=== PATIENT | male | born 1990 | race Caucasian/White ===

== ENCOUNTER 2016-05-13 11:11 | Emergency (ER) | payer SELFPAY ==
[2016-05-13 11:44] VITALS: BP 125/69
--- NOTE | 2016-05-13 11:54 | UC ---
Respiratory Complaint HPI - HPI Summary HPI Summary: cough , chest congestion x 2 days , no fever, no chills, + nasal congestion - History of Current Complaint Chief Complaint: UCRespiratory Stated Complaint: COUGH Time Seen by Provider: 05/13/16 11:31 Hx Obtained From: Patient Onset/Duration: Gradual Onset, Lasting Days - 2, Still Present Timing: Constant Severity Initially: Moderate Severity Currently: Moderate Character: Cough: Nonproductive Aggravating Factors: Allergens, Deep Breaths Associated Signs And Symptoms: Positive: Wheezing, URI, Sinus Discomfort. Negative: Dizziness - Allergies/Home Medications Allergies/Adverse Reactions: Allergies Allergy/AdvReac Type Severity Reaction Status Date / Time Doxycycline Allergy Severe fever , Verified 05/13/16 11:34 hives Minocycline Allergy Severe fever , Verified 05/13/16 11:34 hives Home Medications: Home Medications Acetaminophen TAB* [Tylenol TAB*] 1,000 mg PO Q6H PRN 05/13/16 [History Confirmed 05/13/16] PMH/Surg Hx/FS Hx/Imm Hx Respiratory History Of: Reports: Asthma - childhood asthma - Surgical History Surgical History: Yes Surgery Procedure, Year, and Place: Right wrist ganglion cyst removal surgery at age 14yrs - Family History Known Family History: Positive: Hypertension Negative: Diabetes - Social History Alcohol Use: None Substance Use Type: Marijuana Substance Use Comment - Amount & Last Used: 05/10/16 Smoking Status (MU): Heavy Every Day Tobacco Smoker Type: Cigarettes Amount Used/How Often: 1/2 PPD Review of Systems Constitutional: Negative Skin: Negative Eyes: Negative ENT: Negative Respiratory: Cough Cardiovascular: Negative All Other Systems Reviewed And Are Negative: Yes Physical Exam Triage Information Reviewed: Yes Appearance: Well-Appearing, No Pain Distress, Well-Nourished Vital Signs: Initial Vital Signs Temp 98.9 F 05/13/16 11:21 Pulse 84 05/13/16 11:21 Resp 18 05/13/16 11:21 BP 125/69 05/13/16 11:21 Pulse Ox 100 05/13/16 11:21 Vital Signs Reviewed: Yes Eye Exam: Normal Eyes: Positive: Conjunctiva Clear ENT: Positive: Normal ENT inspection, Hearing grossly normal, Pharynx normal Neck exam: Normal Neck: Positive: Supple, Nontender, No Lymphadenopathy Respiratory: Positive: Chest non-tender, Lungs clear, Normal breath sounds Cardiovascular: Positive: RRR, No Murmur, Pulses Normal Skin Exam: Normal UC Diagnostic Evaluation - Laboratory O2 Sat by Pulse Oximetry: 100 Respiratory Course/Dx - Differential Dx/Diagnosis Provider Diagnoses: URI Discharge - Discharge Plan Condition: Stable Disposition: HOME Prescriptions: Albuterol HFA INHALER* [Ventolin HFA Inhaler*] 1 puff INH Q4H PRN #1 mdi PRN Reason: Wheezing Patient Education Materials: Upper Respiratory Infection (ED) Forms: *Work Release Referrals: MELISSA Peters [Primary Care Provider] - If Needed
== END 2016-05-13 11:57 | disposition home or self-care (01) ==
LOC: UCCORT 11:11
DX: J06.9 Acute upper respiratory infection, unspecified (principal); Z88.1 Allergy status to other antibiotic agents; F12.90 Cannabis use, unspecified, uncomplicated; F17.210 Nicotine dependence, cigarettes, uncomplicated
CPT/HCPCS: 99212; G0463

== ENCOUNTER 2016-11-05 14:07 | Emergency (ER) | payer OTHER ==
[2016-11-05 14:33] VITALS: BP 121/69
--- NOTE | 2016-11-05 15:23 | UC ---
Neck Pain HPI - HPI Summary HPI Summary: 26 y/o male presents to the urgent care c/o RT side neck pain for the past 4 days. 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 Pt states pain is like a spasmodic and is 8/10 an radiates to his back. He took Ibuprofen 600mg PO this morning which helped. Pt denies any COWAN, numbness or tingling over the upper arms, fever, SOB, chest pain, N/V/D. Pt states he is in a hurry because he needs to take his girlfriend to work. Declines any Images. Pt request a note for work. Pt has not other complains. - History of Current Complaint Chief Complaint: UCBackPain Stated Complaint: NECK PAIN Time Seen by Provider: 11/05/16 15:13 Hx Obtained From: Patient Onset/Duration Of Injury/Symptoms: Days - 4 days ago Mechanism Of Injury: No Known Trauma Timing: Constant Onset/Duration: Gradual Onset, Lasting Days, Still Present Severity: Moderate Pain Intensity: 8 Pain Scale Used: 0-10 Numeric Location: Discrete At: - RT side of neck Character: Spasmotic Aggravating Factors: Movement Alleviating Factors: OTC Meds Associated Signs & Symptoms: Positive: Headache - mild. Negative: Swelling, Redness, Fever, Nuchal Rigity, Weakness, Paresthesia - Risk Factors Meningitis Risk Factors: Negative - Allergies/Home Medications Allergies/Adverse Reactions: Allergies Allergy/AdvReac Type Severity Reaction Status Date / Time Doxycycline Allergy Severe fever , Verified 11/05/16 14:24 hives Minocycline Allergy Severe fever , Verified 11/05/16 14:24 hives PMH/Surg Hx/FS Hx/Imm Hx Previously Healthy: Yes Respiratory History: Asthma - Surgical History Surgical History: Yes Surgery Procedure, Year, and Place: Right wrist ganglion cyst removal surgery - Family History Known Family History: Positive: Hypertension Negative: Diabetes - Social History Occupation: Employed Full-time Lives: With Family Alcohol Use: None Substance Use Type: None Substance Use Comment - Amount & Last Used: 05/10/16 Smoking Status (MU): Heavy Every Day Tobacco Smoker Type: Cigarettes Amount Used/How Often: 1/2 PPD Household Exposure Type: Cigarettes Review Of Systems Constitutional: Positive: Negative Skin: Positive: Negative Eyes: Positive: Negative ENT: Positive: Negative Respiratory: Positive: Negative Cardiovascular: Positive: Negative Gastrointestinal: Positive: Negative Genitourinary: Positive: Negative Musculoskeletal: Positive: Other: - RT side neck pain and spasm Neurological: Positive: Headache - mild Psychological: Positive: Negative All Other Systems Reviewed And Are Negative: Yes Physical Exam Triage Information Reviewed: Yes Appearance: Well-Appearing, No Pain Distress, Well-Nourished, Thin Vital Signs: Initial Vital Signs Temp 98.7 F 11/05/16 14:25 Pulse 79 11/05/16 14:25 Resp 18 11/05/16 14:25 BP 121/69 11/05/16 14:25 Pulse Ox 100 11/05/16 14:25 Vital Signs Reviewed: Yes Eye Exam: Normal Eyes: Positive: Conjunctiva Clear - PERRLA, EOMI ENT Exam: Normal ENT: Positive: Normal ENT inspection, Hearing grossly normal, Pharynx normal, TMs normal Dental Exam: Normal Neck: Positive: Supple, No Lymphadenopathy, Other: - Supple without meningismus or adenopathy. Carotids are equal. Trachea midline. No bruits or JVD. point tenderness on the RT side of neck over trapezius muscle, limited ROM of neck RT> LF side due to pain specially lateral bending.. Respiratory Exam: Normal Respiratory: Positive: Chest non-tender, Lungs clear, Normal breath sounds Cardiovascular Exam: Normal Cardiovascular: Positive: RRR, No Murmur, Pulses Normal, Brisk Capillary Refill Abdominal Exam: Normal Abdomen Description: Positive: Nontender, No Organomegaly, Soft. Negative: CVA Tenderness (R), CVA Tenderness (L) Bowel Sounds: Positive: Present Musculoskeletal Exam: Normal Musculoskeletal: Positive: Strength Intact, ROM Intact, No Edema Neurological Exam: Normal Psychological Exam: Normal Skin Exam: Normal Neck Pain Course/Dx - Course Course Of Treatment: 26 y/o male presents to the urgent care c/o RT side neck pain for the past 4 days. 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 Pt states pain is like a spasmodic and is 8/10 an radiates to his back. He took Ibuprofen 600mg PO this morning which helped. Pt denies any COWAN, numbness or tingling over the upper arms, fever, SOB, chest pain , N/V/D. Pt states he is in a hurry because he needs to take his girlfriend to work. Declines any Images. Pt has not other complains.HX obtained. Pt with neck spasm . Rx Flexeril Po and Naproxen Po to allviate symptoms. Advised if not improvement of symptoms to f/u with his PCP or return to the urgent clinic. Pt understood and agreed and left clinic ambulating. - Differential Dx/Diagnosis Differential Dx/HQI/PQRI: Arthritis, Dislocation, Sprain, Strain, Torticollis Provider Diagnoses: 1- neck pain with neck spasm Discharge - Discharge Plan Condition: Stable Disposition: HOME Prescriptions: Cyclobenzaprine TAB* [Flexeril 10 MG TAB*] 10 mg PO TID PRN #15 tab PRN Reason: Spasms - Neck Naproxen TAB* [Naprosyn 250 mg TAB*] 500 mg PO Q8H PRN #21 tab PRN Reason: Pain Patient Education Materials: Muscle Spasm (ED) Forms: *Work Release Referrals: MELISSA Peters [Primary Care Provider] - 3 Days Additional Instructions: 1-Please take medications as directed to alleviate pain and spasm. the Flexeril PO can make you drowsy, please avoid driving. 2-Please apply warm compresses around the spasm 3- If symptoms do not improve or worsen please f/u with your PCP or return to the [facility] care for further treatment
== END 2016-11-05 15:36 | disposition home or self-care (01) ==
LOC: UCCORT 14:07
DX: M54.2 Cervicalgia (principal); M62.830 Muscle spasm of back; R51 Headache; J45.909 Unspecified asthma, uncomplicated; Z88.1 Allergy status to other antibiotic agents; F17.210 Nicotine dependence, cigarettes, uncomplicated
CPT/HCPCS: 99212; G0463

== ENCOUNTER 2017-05-16 12:08 | Emergency (ER) | payer SELFPAY ==
[2017-05-16 12:32] VITALS: BP 137/93
--- NOTE | 2017-05-16 13:50 | UC ---
UC General HPI - HPI Summary HPI Summary: patient her reporting no opiate use for about 3 weeks, patient reports for the past 4 days he has had issues with insomnia, due to stresses related to the past few weeks when he was using opiates including both him and his girl friend being arrested, and the reality of sobriety - History of Current Complaint Chief Complaint: UCGeneralIllness Stated Complaint: INSOMNIA Time Seen by Provider: 05/16/17 12:28 Hx Obtained From: Patient Onset/Duration: Gradual Onset, Lasting Days - 4 Timing: Constant Onset Severity: Moderate Current Severity: Moderate Pain Intensity: 4 - Allergy/Home Medications Allergies/Adverse Reactions: Allergies Allergy/AdvReac Type Severity Reaction Status Date / Time doxycycline Allergy Hives Verified 05/16/17 12:23 minocycline Allergy Hives Verified 05/16/17 12:23 PMH/Surg Hx/FS Hx/Imm Hx Previously Healthy: No Psychological History: Other Other Psychological History: opiate abuse disorder in early sobriety - Surgical History Surgical History: Yes Surgery Procedure, Year, and Place: Right wrist ganglion cyst removal surgery - Family History Known Family History: Positive: Hypertension Negative: Diabetes - Social History Occupation: Unemployed Lives: With Family Alcohol Use: None Substance Use Type: Heroin, Other Substance Use Comment - Amount & Last Used: 05/01/17 Smoking Status (MU): Heavy Every Day Tobacco Smoker Type: Cigarettes Amount Used/How Often: 1/2 PPD Household Exposure Type: Cigarettes Review of Systems Constitutional: Negative Skin: Negative Eyes: Negative ENT: Negative Respiratory: Negative Cardiovascular: Negative Gastrointestinal: Negative Genitourinary: Negative Motor: Negative Neurovascular: Negative Musculoskeletal: Negative Neurological: Negative Psychological: Other - insomnia- Is Patient Immunocompromised?: No All Other Systems Reviewed And Are Negative: Yes Physical Exam Triage Information Reviewed: Yes Appearance: Well-Appearing, No Pain Distress, Well-Nourished Vital Signs: Initial Vital Signs Temp 99.4 F 05/16/17 12:24 Pulse 98 05/16/17 12:24 Resp 20 05/16/17 12:24 BP 137/93 05/16/17 12:24 Pulse Ox 100 05/16/17 12:24 Vital Signs Reviewed: Yes Eye Exam: Normal Eyes: Positive: Conjunctiva Clear ENT Exam: Normal ENT: Positive: Normal ENT inspection, Hearing grossly normal. Negative: Nasal congestion, Tonsillar swelling, Tonsillar exudate, Trismus, Muffled voice, Hoarse voice, Sinus tenderness Dental Exam: Normal Neck exam: Normal Neck: Positive: Supple, Nontender Respiratory Exam: Normal Respiratory: Positive: No respiratory distress, No accessory muscle use Cardiovascular Exam: Normal Cardiovascular: Positive: Pulses Normal, Brisk Capillary Refill Musculoskeletal Exam: Normal Musculoskeletal: Positive: Strength Intact, ROM Intact, No Edema Neurological Exam: Normal Neurological: Positive: Alert, Muscle Tone Normal Psychological Exam: Normal Skin Exam: Normal Course/Dx - Course Course Of Treatment: extensive edcation regarding safety, multiple referrals made for follow up care and treatment options AA/NA encouraged, hospital remains an open option should sx worsen or fail to improve - Differential Dx - Multi-Symptom Provider Diagnoses: insomnia, phase 3 opiate withdraw Discharge - Discharge Plan Condition: Stable Disposition: HOME Prescriptions: cloNIDine HCl [Catapres 0.1 MG TAB] 0.1 mg PO BID PRN #10 tablet PRN Reason: Agitation/Anxiety Naloxone Nasal [place]* [Narcan Nasal [place]] 4 mg NA SEE INSTRUCTIONS #2 spr traZODone TAB* [Desyrel TAB*] 100 mg PO BEDTIME #5 tab Patient Education Materials: Narcotic Abuse (ED), Insomnia (ED) Referrals: MELISSA Peters [Primary Care Provider] - 1 Day
== END 2017-05-16 13:40 | disposition home or self-care (01) ==
LOC: UCCORT 12:08
DX: G47.00 Insomnia, unspecified (principal); F11.23 Opioid dependence with withdrawal; Z88.1 Allergy status to other antibiotic agents; F17.210 Nicotine dependence, cigarettes, uncomplicated
CPT/HCPCS: 99212; G0463

== ENCOUNTER 2017-12-02 11:35 | Emergency (ER) | payer OTHER ==
--- NOTE | 2017-12-02 11:41 | ED ---
Head Injury - HPI Summary HPI Summary: This patient is a 27 year old M CLAUDINE from [facility] drug treatment [facility] to ED with a chief complaint of head injury since about 1050 today. The patient leaned back against a chair, the chair slipped and the patient hit his head back against the wall. He then fell to the ground. He tried to stand up but felt dizzy so he went to sit back down again. The patient rates the pain 4/10 in severity. Symptoms aggravated by nothing. Symptoms alleviated by spontaneous resolution. Patient reports COWAN (currently resolved), dizziness, and nausea ( currently resolved). Patient denies LOC. Current vitals include 77 BPM, 100 O2 sat, and BP 146/85. - History Of Current Complaint Stated Complaint: FALL Time Seen by Provider: 12/02/17 11:37 Hx Obtained From: Patient Mechanism Of Injury: Blunt Trauma - hit head back against the wall, fall from a chair leaning back Onset/Duration: Started Hours Ago - about 1050 today, Traumatic, Resolved Onset of Pain: Immediate Severity Currently: None Severity Initially: Mild Pain Intensity: 4 Pain Scale Used: 0-10 Numeric Location of Head Injury: Occipital Location: Discrete At: - post occiput Character: Dull Aggravating Factor(s): Other: - nothing Alleviating Factor(s): Other: - spontaneous resolution Associated Signs And Symptoms: Headache, Other: - Patient reports COWAN (currently resolved), dizziness, and nausea (currently resolved). Patient denies LOC. - Allergies/Home Medications Allergies/Adverse Reactions: Allergies Allergy/AdvReac Type Severity Reaction Status Date / Time doxycycline Allergy Hives Verified 05/16/17 12:23 minocycline Allergy Hives Verified 05/16/17 12:23 PMH/Surg Hx/FS Hx/Imm Hx Previously Healthy: No - former heroin user Endocrine/Hematology History: Denies: Hx Diabetes Cardiovascular History: Denies: Hx Coronary Artery Disease, Hx Hypertension Respiratory History: Reports: Hx Asthma - childhood asthma Psychiatric History: Reports: Hx Substance Abuse - heroin - Surgical History Surgery Procedure, Year, and Place: Right wrist ganglion cyst removal surgery Infectious Disease History: No Infectious Disease History: Denies: Hx Clostridium Difficile, Hx Hepatitis, Hx Human Immunodeficiency Virus (HIV), Hx of Known/Suspected MRSA, Hx Shingles, Hx Tuberculosis, Hx Known/ Suspected VRE, Hx Known/Suspected VRSA, History Other Infectious Disease - Family History Known Family History: Positive: Hypertension, Other Negative: Diabetes Family History: CA, depression, anxiety - Social History Lives: Intermediate - currently in [facility] for heroin rehab 11/2017 Alcohol Use: None Substance Use Type: Reports: Heroin, Other Substance Use Comment - Amount & Last Used: 05/01/17 Smoking Status (MU): Heavy Every Day Tobacco Smoker Type: Cigarettes Amount Used/How Often: /2 PPD Review of Systems Constitutional: Negative Eyes: Negative Cardiovascular: Negative Positive: Nausea - now resolved Positive: Other - head injury Skin: Negative Neurological: Other - dizziness; denies LOC Positive: Headache - currently resolved Psychological: Normal All Other Systems Reviewed And Are Negative: Yes Physical Exam - Summary Physical Exam Summary: Appearance: Well-appearing, moderate pain distress, well-nourished Skin: Warm, color reflects adequate perfusion, dry Head: Normal Head/Face inspection, no hematoma, bruising or scalp tenderness at site of impact after fall on post occiput Eyes: Conjunctiva clear, PERRL, EOMI, no nystagmus ENT: Normal inspection Neck: Supple, no nodes, no JVD Respiratory: Lungs clear, normal breath sounds, no respiratory distress Cardio: RRR, No murmur, pulses normal, brisk capillary refill Abdomen: Soft, nontender Bowel sounds: Present Musculoskeletal: Strength Intact/ROM intact, no calf tenderness, no edema. Psychological: Normal Neuro: A&O x3, CN II-XII intact, motor function 5/5, sensation intact, cerebellar normal GCS: 15 Triage Information Reviewed: Yes Vital Signs On Initial Exam: Initial Vitals Temp Pulse Resp BP Pulse Ox 98.4 F 77 16 146/85 100 12/02/17 11:38 12/02/17 11:38 12/02/17 11:38 12/02/17 11:38 12/02/17 11:38 Vital Signs Reviewed: Yes Diagnostics - Laboratory Lab Statement: Any lab studies that have been ordered have been reviewed, and results considered in the medical decision making process. - CT Brain CT CT Interpretation Completed By: Radiologist - No intracranial mass or hemorrhage is noted. ED physician has reviewed this radiology report. Re-Evaluation - Re-Evaluation First Eval Re-Evaluation Time: 13:00 Change: Improved Comment: no headache, feels well. CT results discussed. Pt agrees with discharge. Head Injury Course/Dx Assessment/Plan: This patient is a 27 year old M CLAUDINE from [facility] drug [facility] program to ED with a chief complaint of head injury since about [address] reveals no intracranial mass or hemorrhage is noted. Pt's urine tox screen is negative. The patient will be discharged with dx of traumatic head injury. Patient understands and agrees with this plan. - Diagnoses Differential Diagnosis/HQI/PQRI: Concussion Without LOC, Hematoma, Intracranial Bleed, Skull Fracture Provider Diagnoses: Traumatic injury of head Discharge - Sign-Out/Discharge Documenting (check all that apply): Patient Departure - Discharge Plan Condition: Stable Disposition: HOME Patient Education Materials: Head Injury (ED) Referrals: MELISSA Peters [Medical Doctor] - Additional Instructions: Your head CT did not show any abnormalities. Return to the ER if you have any new or worsening symptoms. - Billing Disposition and Condition Condition: STABLE Disposition: Home - Attestation Statements Document Initiated by Scribe: Yes Documenting Scribe: Porter Blunt Provider For Whom David is Documenting (Include Credential): Sandra Slater MD Scribe Attestation: Porter Hill, scribed for Sandra Slater MD on 12/07/17 at 2214. Scribe Documentation Reviewed: Yes Provider Attestation: The documentation as recorded by the Porter de la o accurately reflects the service I personally performed and the decisions made by me, Sandra Slater MD
[2017-12-02 12:57] LABS: Urine Appearance Clear; Urine Blood Negative (Negative); Urine Color Straw; Urine Ketones Negative (Negative); Urine Protein Negative (Negative); Urine Specific Gravity 1.004 (1.010-1.030); Urine Urobilinogen Negative (Negative)
--- NOTE | 2017-12-02 12:59 | RAD ---
Indication: Head injury, dizziness. CT of the brain performed without IV contrast. Ventricular structures are midline. No midline shift is noted. The extraction spaces are unremarkable there is no evidence of intracranial mass or hemorrhage. No other high or low density lesions are identified. Mastoid air cells and paranasal sinuses are otherwise unremarkable. IMPRESSION: No intracranial mass or hemorrhage is noted.
[2017-12-02] MEDS ORDERED: Acetaminophen TAB* 325 MG PO ONE (13:12)
[2017-12-02 13:31] VITALS: BP 138/78
== END 2017-12-02 13:26 | disposition home or self-care (01) ==
LOC: ED 11:35
DX: S09.90XA Unspecified injury of head, initial encounter (principal); W22.01XA Walked into wall, initial encounter; Y92.9 Unspecified place or not applicable; R42 Dizziness and giddiness; F17.210 Nicotine dependence, cigarettes, uncomplicated
CPT/HCPCS: 36415; 70450; 80307; 81003; 99282; A9270-GY

== ENCOUNTER 2019-04-12 16:54 | Emergency (ER) | payer OTHER ==
[2019-04-12 17:22] VITALS: BP 127/78
--- NOTE | 2019-04-12 18:25 | UC ---
Abdominal Pain Male HPI - HPI Summary HPI Summary: 28 yo male with 5 day history of n/v markedly improved today 1 episode of vomiting past 24 hours no diarrhea no cp or sob no uti symptoms tolerating liquids well drinks 5 caffienated beverages/day no blood in vomit no COWAN no myalgias - History of Current Complaint Chief Complaint: UCGI Stated Complaint: VOMITING/STOMACH PAIN Time Seen by Provider: 04/12/19 18:16 Hx Obtained From: Patient Onset/Duration: Gradual Onset Timing: Constant Severity Initially: Mild Severity Currently: None Pain Intensity: 0 Pain Scale Used: 0-10 Numeric Location: Diffuse Character: Cramping Aggravating Factor(s): Food Alleviating Factor(s): Spontaneous Resolution Associated Signs And Symptoms: Positive: Constipation, Nausea, Vomiting. Negative: Diaphoresis, Fever, Cough, Chest Pain, Dizzy, Back Pain, Blood in Stool, Urinary Symptoms, Decreased Appetite, Diarrhea, Penile Discharge - Allergies/Home Medications Allergies/Adverse Reactions: Allergies Allergy/AdvReac Type Severity Reaction Status Date / Time doxycycline Allergy Hives Verified 04/12/19 17:18 minocycline Allergy Hives Verified 04/12/19 17:18 PMH/Surg Hx/FS Hx/Imm Hx Previously Healthy: Yes - Surgical History Surgical History: Yes Surgery Procedure, Year, and Place: Right wrist ganglion cyst removal surgery - Family History Known Family History: Positive: Hypertension, Non-Contributory Negative: Diabetes Family History: CA, depression, anxiety - Social History Alcohol Use: None Substance Use Type: None Substance Use Comment - Amount & Last Used: 05/01/17 Smoking Status (MU): Heavy Every Day Tobacco Smoker Type: Cigarettes Amount Used/How Often: 1/2 PPD Household Exposure Type: Cigarettes Review of Systems All Other Systems Reviewed And Are Negative: Yes Constitutional: Positive: Negative Skin: Positive: Negative Eyes: Positive: Negative ENT: Positive: Negative Respiratory: Positive: Negative Cardiovascular: Positive: Negative Gastrointestinal: Positive: Abdominal Pain - resolved, Vomiting, Nausea Motor: Positive: Negative Neurovascular: Positive: Negative Musculoskeletal: Positive: Negative Neurological: Positive: Negative Psychological: Positive: Negative Physical Exam Triage Information Reviewed: Yes Appearance: Well-Appearing, No Pain Distress, Well-Nourished Vital Signs: Initial Vital Signs Temp 98.5 F 04/12/19 17:18 Pulse 79 04/12/19 17:18 Resp 16 04/12/19 17:18 BP 127/78 04/12/19 17:18 Pulse Ox 100 04/12/19 17:18 Vital Signs Reviewed: Yes Eyes: Positive: Conjunctiva Clear ENT: Positive: Hearing grossly normal. Negative: Nasal congestion, Nasal drainage, Tonsillar swelling, Tonsillar exudate, Muffled voice, Hoarse voice Neck: Positive: Supple, Nontender, No Lymphadenopathy Respiratory: Positive: Lungs clear, Normal breath sounds, No respiratory distress, No accessory muscle use Cardiovascular: Positive: RRR, No Murmur Abdomen Description: Positive: No Organomegaly, Soft. Negative: Nontender - LLQ tenderness (mild), CVA Tenderness (R), CVA Tenderness (L) Bowel Sounds: Positive: Present Musculoskeletal: Positive: ROM Intact, No Edema Neurological: Positive: Alert Psychological Exam: Normal Skin Exam: Normal Abd Pain Male Course/Dx - Differential Dx/Clinical Impression Provider Diagnosis: Gastritis Discharge ED - Sign-Out/Discharge Documenting (check all that apply): Patient Departure All imaging exams completed and their final reports reviewed: No Studies - Discharge Plan Condition: Stable Disposition: HOME Prescriptions: Ondansetron TAB* [Zofran Tab*] 4 mg PO Q6H PRN #8 tab PRN Reason: Nausea Patient Education Materials: Acute Abdominal Pain (ED) Referrals: Dwight Dove DO [Primary Care Provider] - 2 Days (if not better) - Billing Disposition and Condition Condition: STABLE Disposition: Home
== END 2019-04-12 18:33 | disposition home or self-care (01) ==
LOC: UCCORT 16:54
DX: K29.70 Gastritis, unspecified, without bleeding (principal); Z88.1 Allergy status to other antibiotic agents; F17.210 Nicotine dependence, cigarettes, uncomplicated
CPT/HCPCS: 99212; G0463

== ENCOUNTER 2019-04-19 13:57 | Emergency (ER) | payer OTHER ==
--- NOTE | 2019-04-19 17:25 | ED ---
Abdominal Pain/Male - HPI Summary HPI Summary: Patient complains of persistent progressive abdominal pain, nausea or vomiting 2 weeks. Abdominal pain started on left side, now bilateral, and radiating to groin. Seen at urgent care 04/12, prescribed Zofran. Patient states Zofran controls nausea for the most part. Patient has history of IV heroin abuse, states he had to go get some street heroin for abdominal pain because it was so bad. Denies fever, cough, sore throat, CP, SOB, diarrhea, change in urine, venous discharge, testicular swelling or redness. Medical history is none. Abdominal surgical history is none. - History of Current Complaint Chief Complaint: EDAbdPain Stated Complaint: ABDOMINAL PAIN PER PT Time Seen by Provider: 04/19/19 17:22 Hx Obtained From: Patient Onset/Duration: Gradual Onset, Lasting Weeks Timing: Constant Severity Currently: Severe Pain Intensity: 10 Pain Scale Used: 0-10 Numeric Location: Discrete At: RLQ, Discrete At: LUQ, Discrete At: LLQ Radiates: No Character: Sharp, Cramping Aggravating Factor(s): Food, Movement Alleviating Factor(s): Nothing Associated Signs And Symptoms: Positive: Nausea, Vomiting - Allergies/Home Medications Allergies/Adverse Reactions: Allergies Allergy/AdvReac Type Severity Reaction Status Date / Time doxycycline Allergy Hives Verified 04/19/19 17:24 minocycline Allergy Hives Verified 04/19/19 17:24 PMH/Surg Hx/FS Hx/Imm Hx Endocrine/Hematology History: Denies: Hx Diabetes Cardiovascular History: Denies: Hx Coronary Artery Disease, Hx Hypertension Respiratory History: Reports: Hx Asthma - childhood asthma History: Denies: Hx Dialysis Sensory History: Denies: Hx Eye Prosthesis Opthamlomology History: Denies: Hx Legally Blind EENT History: Denies: Hx Deafness Neurological History: Denies: Hx Dementia Psychiatric History: Reports: Hx Substance Abuse - heroin - Surgical History Surgery Procedure, Year, and Place: Right wrist ganglion cyst removal surgery - Immunization History Immunizations Up to Date: Yes Infectious Disease History: No Infectious Disease History: Denies: Hx Clostridium Difficile, Hx Hepatitis, Hx Human Immunodeficiency Virus (HIV), Hx of Known/Suspected MRSA, Hx Shingles, Hx Tuberculosis, Hx Known/ Suspected VRE, Hx Known/Suspected VRSA, History Other Infectious Disease, Traveled Outside the [place] in Last 30 Days - Family History Known Family History: Positive: Hypertension, Other, Non-Contributory Negative: Diabetes Family History: [place], depression, anxiety - Social History Alcohol Use: None Substance Use Type: Reports: Heroin Substance Use Comment - Amount & Last Used: 05/01/17 Smoking Status (MU): Heavy Every Day Tobacco Smoker Type: Cigarettes Amount Used/How Often: 1/2 PPD Review of Systems Constitutional: Negative Eyes: Negative ENT: Negative Cardiovascular: Negative Respiratory: Negative Positive: Abdominal Pain, Vomiting, Nausea Genitourinary: Negative Musculoskeletal: Negative Skin: Negative Neurological: Negative Psychological: Normal All Other Systems Reviewed And Are Negative: Yes Physical Exam - Summary Physical Exam Summary: Patient tender to palpation in epigastrium, left upper quadrant, left lower quadrant, right lower quadrant. Exam of genitals normal. Triage Information Reviewed: Yes Vital Signs On Initial Exam: Initial Vitals Temp Pulse Resp BP Pulse Ox 99.5 F 87 18 134/81 99 04/19/19 14:04 04/19/19 14:04 04/19/19 14:04 04/19/19 14:04 04/19/19 14:04 Vital Signs Reviewed: Yes Appearance: Positive: Well-Appearing Skin: Positive: Warm Head/Face: Positive: Normal Head/Face Inspection Neck: Positive: Supple Respiratory/Lung Sounds: Positive: Clear to Auscultation Cardiovascular: Positive: Normal Abdomen Description: Positive: Other: Male Genital Exam: Positive: Normal Genitalia Musculoskeletal: Positive: Normal Neurological: Positive: Normal Psychiatric: Positive: Normal AVPU Assessment: Alert - [place] Coma Scale Best Eye Response: 4 - Spontaneous Best Motor Response: 6 - Obeys Commands Best Verbal Response: 5 - Oriented Coma Scale Total: 15 Procedures - Sedation Patient Received Moderate/Deep Sedation with Procedure: No Diagnostics - Vital Signs Vital Signs Temp Pulse Resp BP Pulse Ox 04/19/19 16:00 99 F 89 18 134/83 100 04/19/19 14:04 99.5 F 87 18 134/81 99 - Laboratory Result Diagrams: 04/19/19 18:00 04/19/19 18:00 Lab Statement: Any lab studies that have been ordered have been reviewed, and results considered in the medical decision making process. Abdominal Pain Male Course/Dx - Course Course Of Treatment: Patient complains of persistent progressive abdominal pain , nausea or vomiting 2 weeks. Abdominal pain started on left side, now bilateral, and radiating to groin. Seen at urgent care 04/12, prescribed Zofran. Patient states Zofran controls nausea for the most part. Patient has history of IV heroin abuse, states he had to go get some street heroin for abdominal pain because it was so bad. Denies fever, cough, sore throat, CP, SOB , diarrhea, change in urine, venous discharge, testicular swelling or redness. Medical history is none. Abdominal surgical history is none. Vital signs within normal limits. Labs unremarkable. CT abdomen and pelvis unremarkable. Pain and nausea vomiting controlled with morphine and Zofran IV. - Diagnoses Provider Diagnoses: Abdominal pain, Nausea & vomiting Discharge ED - Sign-Out/Discharge Documenting (check all that apply): Patient Departure - Discharge Plan Condition: Stable Disposition: HOME Prescriptions: Dicyclomine CAP* [Bentyl CAP*] 20 mg PO TID PRN 10 Days #60 cap PRN Reason: Pain Ondansetron ODT TAB* [Zofran 4 MG Odt TAB*] 4 mg PO Q8H PRN 4 Days #24 tab.odt PRN Reason: Nausea Patient Education Materials: Acute Nausea and Vomiting (ED), Acute Abdominal Pain (ED) Forms: *Gen. Provider Communication Referrals: Dwight Dove DO [Primary Care Provider] - Additional Instructions: Alternate ibuprofen 600 mg with Tylenol 650 mg for pain. Take Zofran as directed for nausea. Take Bentyl as directed for stomach pain. If symptoms persist more than 1 week follow-up with GI Dr Gustafson. Return to the ED for any new or worsening symptoms. - Billing Disposition and Condition Condition: STABLE Disposition: Home - Attestation Statements Provider Attestation: I was available for consult. This patient was seen by the [facility]. The patient was not presented to, seen by, or examined by me. Salinas Martinez MD
[2019-04-19] MEDS ORDERED: Ondansetron INJ* 2 MG/ML VIAL IV ONE (17:31)
[2019-04-19] MEDS ORDERED: Morphine 4 MG/ML VIAL (1 ml) 4 MG/ML VIAL IV ONE (17:31)
[2019-04-19] MEDS ORDERED: NS 0.9% 1000 ML** 1,000 ML IV ONE (17:31)
[2019-04-19 18:13] LABS: ABS Basophils 0.1 10^3/ul (0-0.2); ABS Eosinophils 0.1 10^3/ul (0-0.6); ABS Monocytes 0.7 10^3/ul (0-0.8); ABS Neutrophils 6.8 10^3/ul (1.5-7.7); Eosinophil % 1.5 %; Hematocrit 44 % (42-52); Hemoglobin 14.9 g/dL (14.0-18.0); Lymphocyte % 20.9 %; Mean Corpuscular HGB Conc 34 g/dL (31-36); Mean Corpuscular Hemoglobin 31 pg (27-31); Mean Corpuscular Volume 91 fL (80-94); Mean Platelet Volume 9.1 fL (7.4-10.4); Platelet Count 273 10^3/uL (150-450); Red Blood Count 4.82 10^6 /uL (4.18-5.48); Red Cell Distribution Width 13 % (10-15); White Blood Count 9.7 10^3/uL (3.5-10.8)
[2019-04-19 18:26] LABS: ALT 12 U/L (7-52); AST 15 U/L (13-39); Albumin 4.3 g/dL (3.2-5.2); Albumin/Globulin Ratio 1.7 (1-3); Alkaline Phosphatase 61 U/L (34-104); Anion Gap 6 mmol/L (2-11); BUN/Creatinine Ratio 12.5 (8-20); Blood Urea Nitrogen 11 mg/dL (6-24); CO2 Carbon Dioxide 29 mmol/L (22-32); Chloride 105 mmol/L (101-111); EGFR African American 124.8 (>60); EGFR Non-African American 103.1 (>60); Globulin 2.5 g/dL (2-4); Glucose 109 mg/dL (70-100); Potassium 4.1 mmol/L (3.5-5.0); Sodium 140 mmol/L (135-145); Total Protein 6.8 g/dL (6.4-8.9)
[2019-04-19] MEDS ORDERED: Iohexol 300* (CONTRAST) 10 ML SDV IV ONE (19:02)
[2019-04-19 19:03] LABS: Urine Appearance Cloudy; Urine Bilirubin Negative (Negative); Urine Blood Negative (Negative); Urine Color Yellow; Urine Glucose Negative (Negative); Urine Ketones 2+ (Negative); Urine Nitrite Negative (Negative); Urine Protein 1+(30 mg/dL) (Negative); Urine Specific Gravity 1.027 (1.010-1.030); Urine Urobilinogen Positive (Negative)
[2019-04-19 19:18] LABS: Urine Bacteria Absent (Absent); Urine Red Blood Cell Absent (Absent); Urine White Blood Cell Absent (Absent)
[2019-04-19 19:36] VITALS: BP 123/80
[2019-04-19] MEDS ORDERED: Dicyclomine CAP* 10 MG PO ONE (19:48)
[2019-04-19] MEDS ORDERED: Ondansetron ODT TAB* 4 MG PO ONE (19:48)
[2019-04-19] MEDS ORDERED: Ketorolac INJ* 30 MG/ML 1 ML VIAL IM ONE (19:48)
[2019-04-21 13:03] LABS: Chlamydia trachomatis NAA Negative (Negative); Neisseria gonorrhoeae (GC) NAA Negative (Negative)
== END 2019-04-19 20:11 | disposition home or self-care (01) ==
LOC: ED 13:57
DX: R10.9 Unspecified abdominal pain (principal); R11.2 Nausea with vomiting, unspecified; Z88.1 Allergy status to other antibiotic agents; F17.210 Nicotine dependence, cigarettes, uncomplicated
CPT/HCPCS: 36415; 74177; 80053; 81003; 81015; 83605; 83690; 85025; 86140; 87491; 87591; 96361; 96372; 96374; 96375; 99283; A9270-GY; J1885; J2270; J2405; Q9967